=== PATIENT | female | born 1955 | race Caucasian/White ===

== ENCOUNTER 2021-03-13 06:03 | Emergency (ER) | payer MEDICARE, BC, SELFPAY ==
--- NOTE | 2021-03-13 06:14 | XRR_ITS ---
PROCEDURE INFORMATION: Exam: XR Chest Exam date and time: 03/13/2021 6:14 AM Age: 65 years old Clinical indication: Cough and other: Covid+; Patient HX: Cough; Dyspnea; Covid +; Additional info: Dyspnea/cough TECHNIQUE: Imaging protocol: XR of the chest. Views: 1 view. COMPARISON: No relevant prior studies available. FINDINGS: Lungs: Unremarkable. No consolidation. Pleural spaces: Unremarkable. No pleural effusion. No pneumothorax. Heart/Mediastinum: Unremarkable. No cardiomegaly. Bones/joints: Unremarkable. XR/XR chest 1V portable [id number] IMPRESSION: No significant abnormality.
[2021-03-13 06:22] VITALS: BP 131/83; PULSE 56; RESP 18; TEMP 37.4; O2SAT 98; BMI 34.1
--- NOTE | 2021-03-13 08:28 | ED_ITS ---
HPI - COVID General: Chief Complaint: COVID symptoms Stated Complaint: covid+ heavy chest Time Seen by Provider: 03/13/21 06:12 Triage information: Has fever, cough or shortness of breath . History of Present Illness: MD complaint: has COVID symptoms Prior covid testing: yes, results known (Home testing kit from [facility] was positive.) Prior testing date: 03/10/21 COVID 19 common symptoms: positive fever(s), chills, cough, non-productive cough, dyspnea, fatigue, body aches, throat pain, nasal congestion, nausea and diarrhea COVID 19 other sytmptoms: positive chest pain; negative requiring oxygen Onset (ago): day(s) (5) Severity: mild Treatment prior to arrival: none COVID Results: SARS-CoV-2 Antigen (Rapid) Positive (Negative) H 03/13/21 07:21 03/13/21 Nasal/Oral Coronavirus 2019 PCR Pending 03/13/21 07:21 03/13/21 Review of Systems Const: Reports: fever(s), chills, body aches and fatigue ENMT: Reports: throat pain and nasal congestion Card: Reports: chest pain Resp: Reports: dyspnea and non-productive cough GI: Reports: nausea and diarrhea : Denies: flank pain, difficulty voiding, dysuria, urinary frequency or urinary urgency Skin/Breast: Denies: rash or pruritus Physical Exam Const: COMMON NORMALS: no acute distress GENERAL APPEARANCE: cooperative and comfortable ORIENTATION/CONSCIOUSNESS: Yes awake, Yes oriented to person, Yes oriented to place and Yes oriented to time HENMT: COMMON NORMALS: normocephalic, atraumatic and hearing grossly normal bilaterally HEAD & SCALP: normocephalic and atraumatic Neck/C-Spine: COMMON NORMALS: no JVD Resp: COMMON NORMALS: normal respiratory effort, No retractions, No use of accessory muscles and clear to auscultation bilaterally AUSCULTATION: clear to auscultation bilaterally Cardio: COMMON NORMALS: no JVD, regular rate, regular rhythm and No murmurs present (Cardio) RATE: regular rate RHYTHM: regular rhythm GI: COMMON NORMALS: Soft to palpation and No hepatosplenomegaly present AUSCULTATION: Yes normoactive bowel sounds PALPATION: Yes Soft to palpation, No Tenderness to palpation present (GI), No Guarding due to palpation present (GI) and Yes No hepatosplenomegaly present Extremity: COMMON NORMALS: normal to inspection, capillary refill normal, no clubbing, cyanosis or edema, no calf tenderness and no pedal edema Neuro: SENSORIUM/ORIENTATION: Yes oriented to person, Yes oriented to place and Yes oriented to time Skin: COMMON NORMALS: no rashes or lesions noted GENERAL SKIN EXAM: no rashes or lesions noted Course Vital Signs: Vital signs: Vital Signs Temperature 99.3 F 03/13/21 06:22 Pulse Rate 56 L 03/13/21 06:22 Respiratory Rate 15 03/13/21 08:45 Blood Pressure 131/83 03/13/21 06:22 Pulse Oximetry 98 03/13/21 08:45 MDM - COVID MDM Narrative: Medical decision making narrative: Covid testing repeated in the emergency room and confirmed to be positive. We will set the patient up for monoclonal antibodies as an outpatient. She fits both the time criteria her symptoms started approximately 5 days ago as well as based on her age she will qualify. She reviewed risks benefits alternatives. Patient expressed understanding and wishes to proceed with monoclonal antibody infusion. Lab Data: Labs: Lab Results 03/13/21 Range/Units 07:21 SARS-CoV-2 Ag (Rap id) Positive H (Negative) COVID Results: SARS-CoV-2 Antigen (Rapid) Positive (Negative) H 03/13/21 07:21 03/13/21 Nasal/Oral Coronavirus 2019 PCR Pending 03/13/21 07:21 03/13/21 Monoclonal Antibody Treatments Inclusion/Exclusion Criteria weight >/= 40 kg and + direct Sars-Cov-2 test less than 7-10 days ago age >/= 65 not requiring hospitalization, not requiring oxygen (if not chronically on oxygen) and no increase oxygen requirement (if chronically on oxygen) Patient education patient/family/caregiver received/reviewed fact sheet, Emergency Use Authorization/unapproved drug status discussed with patient/family/caregiver, alternatives to this treatment discussed with patient/family/caregiver, risks a nd benefits of medication reviewed with patient/family/caregiver, patient/family/caregiver given opportunity for questions, which were answered and patient consents to receiving Monoclonal Antibody Treatment Plan for treatment Meets criteria for Monoclonal Antibody infusion Ordering Monoclonal Antibody infusion for another day Discharge Plan Discharge Patient Disposition: Home Clinical Impression: COVID-19 Condition: Stable Discharge Orders: Discharge ED (Routine); Ordered 03/13/21 Ordered By: Jase Cintron Discharge Diet: Usual diet Discharge Activity: Limit activity as instructed Patient Instructions: Opioid Safety Activity Restrictions/Additional Instructions: Scheduling will call to schedule a you to get monoclonal antibody infusion. Coding Level of Care Code ED Lens Shaper Grinder for Mannie Jiménez Monoclonal Antibody Treatments Inclusion/Exclusion Criteria OZ COVID test results: SARS-CoV-2 Antigen (Rapid) Positive (Negative) H 03/13/21 07:21 03/13/21 Nasal/Oral Coronavirus 2019 PCR Pending 03/13/21 07:21 03/13/21 weight >/= 40 kg and + direct Sars-Cov-2 test less than 7-10 days ago age >/= 65 not requiring hospitalization, not requiring oxygen (if not chronically on oxygen) and no increase oxygen requirement (if chronically on oxygen) Patient education patient/family/caregiver received/reviewed fact sheet, Emergency Use Authorization/unapproved drug status discussed with patient/family/caregiver, alternatives to this treatment discussed with patient/family/caregiver, risks and benefits of medication reviewed with patient/family/caregiver, patient/family/caregiver given opportunity for questions, which were answered and patient consents to receiving Monoclonal Antibody Treatment Plan for treatment Meets criteria for Monoclonal Antibody infusion Ordering Monoclonal Antibody infusion for another day
[2021-03-13 08:45] VITALS: RESP 15; O2SAT 98
[2021-03-13 08:46] LABS: SARS Covid-2 Antigen Positive (Negative)
[2021-03-13 09:01] VITALS: RESP 15; O2SAT 98
[2021-03-13 13:58] LABS: Coronavirus Test Green County Detected
== END 2021-03-13 09:02 | disposition home or self-care (01) ==
PROVIDERS: Emergency Provider Family Medicine
DX: U07.1 COVID-19 (principal)
CPT/HCPCS: 71045; 87426; 87635; 99282

== ENCOUNTER 2021-03-14 05:55 | Outpatient (CLI) | payer MEDICARE, SELFPAY ==
--- NOTE | 2021-03-14 06:32 | AMB.MCA ---
Patient Information Symptom onset date: 03/08/21 COVID 19 common symptoms: positive fever(s), chills, cough, non-productive cough, fatigue, body aches, headache(s), loss of sense of smell and/or taste, nasal congestion and nausea COVID 19 other sytmptoms: negative requiring oxygen Severity: mild Treatment prior to arrival: none [facility] COVID test results: SARS-CoV-2 Antigen (Rapid) Positive (Negative) H 03/13/21 07:03/13/21 Nasal/Oral Coronavirus 2019 PCR Detected H 03/13/21 07:03/13/21 Criteria/Plan Inclusion/Exclusion Criteria weight >/= 40kg age >/= 65 not requiring hospitalization, not requiring oxygen (if not chronically on oxygen) and no increase oxygen requirement (if chronically on oxygen) Patient education patient/family/caregiver received/reviewed fact sheet, Emergency Use Authorization/unapproved drug status discussed with patient/family/caregiver, alternatives to this treatment discussed with patient/family/caregiver, risks and benefits of medication reviewed with patient/family/caregiver, patient/family/caregiver given opportunity for questions, which were answered and patient consents to receiving Monoclonal Antibody Treatment Plan for treatment Meets criteria for Monoclonal Antibody infusion Ordering Monoclonal Antibody infusion for today
[2021-03-14 06:38] VITALS: BP 108/70; PULSE 73; RESP 16; TEMP 37.1; O2SAT 95; BMI 34.1
[2021-03-14 09:15] VITALS: BP 135/78; PULSE 51; TEMP 36.9; O2SAT 98
--- NOTE | 2021-03-17 14:40 | DCPLANNER ---
manager financial planning had message that patient received the monoclonal antibody infusion. manager financial planning called and spoke with patients . manager financial planning was told that patient is feeling much better, that before the infusion, she ran a fever and had stomach issues. After the infusion, patient is feeling much better just still a little shaky, and can still get a little short of breath.
== END 2021-03-14 05:56 | disposition home or self-care (01) ==
LOC: ER 05:58
PROVIDERS: Visit Provider Family Medicine
DX: U07.1 COVID-19 (principal)
CPT/HCPCS: 96365

== ENCOUNTER 2022-04-30 16:29 | Emergency (ER) | payer MEDICARE, BC, SELFPAY ==
[2022-04-30 16:42] VITALS: BP 147/85; PULSE 82; RESP 16; TEMP 36.4; O2SAT 100; BMI 34.9
--- NOTE | 2022-04-30 18:47 | XRR_ITS ---
PROCEDURE INFORMATION: Exam: XR Left Hip Exam date and time: 04/30/2022 6:59 PM Age: 66 years old Clinical indication: Injury or trauma; Blunt trauma (contusions or hematomas); Left; Hip; Injury details: Fall while unloading a rabbit hutch TECHNIQUE: Imaging protocol: Radiologic exam of the Left hip. Views: 2 or 3 views hip with pelvis when performed. COMPARISON: No relevant prior studies available. FINDINGS: Bones/joints: No fracture or dislocation. Small metallic anchor in the area of each pubic body. Soft tissues: No obvious soft tissue hematoma. XR/XR hip LT 2-3V wo/w pel* [id number] IMPRESSION: No acute fracture.
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
--- NOTE | 2022-04-30 18:47 | CTR_ITS ---
PROCEDURE INFORMATION: Exam: CT Lumbar Spine Without Contrast Exam date and time: 04/30/2022 7:07 PM Age: 66 years old Clinical indication: Injury or trauma; Fall; Blunt trauma (contusions or hematomas) TECHNIQUE: Imaging protocol: Computed tomography of the lumbar spine without contrast. Radiation optimization: All CT scans at this facility use at least one of these dose optimization techniques: automated exposure control; mA and/or kV adjustment per patient size (includes targeted exams where dose is matched to clinical indication); or iterative reconstruction. COMPARISON: CR (PELVIS, ) 04/30/2022 6:59 PM RADIATION DOSE METRICS: Total DLP (mGy-cm): 886.35 FINDINGS: Bones/joints: Short lowest ribs and 4 lumbar vertebral bodies. No pars defect or acute fracture. No definite malalignment. Small right central focal disc protrusion at T11-12. Foraminal annular bulging at L1-L2. Slight disc narrowing, diffuse annular bulging, moderate canal stenosis and mild bilateral foraminal stenoses at L2-L3. Moderate to marked disc narrowing with vacuum phenomenon, diffuse annular bulging, mild canal stenosis and mild left and [id number] right foraminal stenoses at L3-L4. Moderate to marked disc narrowing with vacuum phenomenon, diffuse annular bulging, mild canal stenosis and moderate bilateral foraminal stenoses at L4-S1. Kidneys and ureters: Left nephrectomy. Mild dilatation of the visualized part of the right ureter, but no right hydronephrosis. Vasculature: No aortic aneurysm. Atherosclerosis. Soft tissues: No apparent soft tissue hematoma. CT/CT lumbar spine wo con* [id number] IMPRESSION: 1. No acute fracture. 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 2. Left nephrectomy. Mild right hydroureter, cause and significance unclear.
[2022-04-30] MEDS: HYDROcodone-acetaminophen 5-325 mg Tablet 1 TAB PO (19:48)
[2022-04-30] MEDS: tetanus-diphtheria tox (adult) 0.5 mL SDV IM (19:48)
[2022-04-30] MEDS: cephALEXin 500 mg Capsule PO (20:41)
[2022-04-30 20:42] VITALS: BP 174/99; PULSE 82; RESP 16; TEMP 36.4; O2SAT 100
--- NOTE | 2022-05-01 22:16 | W.ED.WOUNDLC ---
HPI - Wound/Laceration General: Chief Complaint: Wound/Laceration Stated Complaint: Laceration head and arm Time Seen by Provider: 04/30/22 18:42 History of Present Illness: 66-year-old female patient presents to the emergency department with a laceration to her forehead and bilateral upper extremities. Patient states she was working on a rabbit cage and a piece of metal fell off and hit her. Unknown loss of consciousness. Patient is not on any blood thinners. Patient denies any neck pain. Patient denies any other trauma or injury. Patient presents with bleeding controlled Associated symptoms: Denies chills, fever(s), nausea, syncope or vomiting Review of Systems Const: Denies: fever(s), chills, body aches, change in appetite, change in weight, fatigue, malaise or diaphoresis Eyes: Denies: change in vision, blurry vision, blind spots, photophobia, eye discomfort, eye discharge, eye redness, floaters or seeing flashes ENMT: Denies: throat pain, uvular edema, enlarged tonsils, odynophagia, hoarseness, mouth pain, swelling of lips/tongue, oral sores, bleeding gums, dental pain, dry mouth, ear or mastoid pain, ear discharge, change in hearing, tinnitus, disequilibrium, nasal discharge, nasal congestion, post nasal drip or sinus pain Card: Denies: chest pain, palpitations, irregular heart rhythm, edema, swelling of feet/ankles, lightheadedness, syncope, pre-syncope, dyspnea on exertion, orthopnea, leg pain with exertion or acrocyanosis Resp: Denies: dyspnea, productive cough, non-productive cough, wheezing, stridor, pain on inspiration, change in phlegm color, hemoptysis or chest congestion GI: Denies: abdominal pain, nausea, vomiting, hematemesis, dysphagia, diarrhea, constipation, GI cramping, change in bowel habits or rectal pain : Denies: flank pain, difficulty voiding, dysuria, urinary frequency, urinary urgency, urinary hesitancy or hematuria Musc: Reports: extremity pain; Denies: neck pain, back pain, extremity swelling, joint pain, joint swelling, joint redness, joint warmth or deformity Skin/Breast: Denies: rash, pruritus, erythema, sores, new lesions, changes in skin color or dry skin Neuro: Reports: headache(s) and dizziness; Denies: numbness in extremities, weakness in extremities, sensory changes, lack of coordination, difficulty walking, frequent falls, vertigo, confusion, behavioral changes, Slurred speech present, difficulty communicating thoughts or seizure-like activity Psych: Denies: anxiety, depression, suicidal ideation or homicidal ideation Endo: Denies: polyuria, polydipsia, tired all the time, cold intolerance, excessive sweating, flushing, hot flashes or heat intolerance Maximo/Lymph: Denies: easy bruising, easy bleeding, petechiae, purpura, enlarged lymph nodes or tender lymph nodes All/Imm: Denies: urticaria, throat swelling, tongue swelling, facial swelling, acute wheezing or itchy eyes Physical Exam Const: COMMON NORMALS: no acute distress, patient oriented x3, healthy appearing, alert and well nourished GENERAL APPEARANCE: cooperative, comfortable, well kempt and well developed; not ill appearing ORIENTATION/CONSCIOUSNESS: Yes awake, Yes oriented to person, Yes oriented to place and Yes oriented to time HENMT: COMMON NORMALS: normocephalic, hearing grossly normal bilaterally, external ears normal, EAC's normal, TM's normal bilaterally, Normal external nose present, Normal nasal mucous membranes and turbinates present and moist oral mucous membranes HEAD & SCALP: normal to inspection and normocephalic FACE & SINUS: normal facial exam, sinuses nontender and face symmetric NOSE: Normal external nose present, Normal nares present, Normal nasal mucous membranes and turbinates present, No nasal discharge present and Abnormal external nose present EXTERNAL EAR: Yes external ears normal and Yes mastoids normal EXTERNAL AUDITORY CANAL: EAC's normal TYMPANIC MEMBRANE: TM's normal bilaterally MOUTH: Normal oral and palatal mucosa present, lip normal, tongue normal and Normal salivary glands and ducts present THROAT: no uvular edema Eye: COMMON NORMALS: Equal, round and reactive pupils present, EOMs intact bilaterally, conjunctivae normal and no scleral icterus GENERAL EYE: appearance normal, both eyes and all related structures EYELID: eyelids normal CONJUNCTIVA: Yes conjunctivae normal SCLERA: sclerae normal CORNEA: Yes corneas normal PUPIL: Yes Equal, round and reactive pupils present Neck/C-Spine: COMMON NORMALS: full ROM, no lymphadenopathy, supple, no meningeal signs, no JVD and Thyroid normal GENERAL: Yes normal visual inspection and Yes trachea midline THYROID: Thyroid normal CERVICAL SPINE: Yes cervical ROM normal Lymph: LYMPHATIC: no lymphadenopathy noted and no lymphedema noted Chest: COMMONS NORMALS: normal inspection of the chest and normal palpation of entire chest wall Resp: COMMON NORMALS: normal respiratory effort, No retractions, No use of accessory muscles and clear to auscultation bilaterally EFFORT & INSPECTION: Yes able to speak in complete sentences and Yes symmetric chest movement AUSCULTATION: clear to auscultation bilaterally Cardio: COMMON NORMALS: no JVD, regular rate and regular rhythm RATE: regular rate RHYTHM: regular rhythm GI: COMMON NORMALS: Normal to inspection, nondistended, normoactive bowel sounds present, Soft to palpation, non-tender, No hepatosplenomegaly present, no masses and no bruits INSPECTION: Yes normal to inspection AUSCULTATION: Yes normoactive bowel sounds PALPATION: Yes Soft to palpation and Yes No hepatosplenomegaly present PERCUSSION: normal to percussion RECTAL EXAM: deferred : COMMON NORMALS: Yes no CVA tenderness, Yes normal external appearance, Yes normal appearance of the vagina, Yes normal appearance of the cervix, Yes No adnexal tenderness and Yes no masses BLADDER/KIDNEY EXAM: Yes no CVA tenderness Back/Pelvis: COMMON NORMALS: no CVA tenderness, thoracic and lumbar spine normal to inspection, no thoracic nor lumbar tenderness, thoraco-lumbar ROM normal and straight leg raise negative bilaterally THORACIC SPINE/UPPER BACK: Yes normal to inspection LUMBAR SPINE/LOWER BACK: Yes normal to inspection Extremity: COMMON NORMALS: normal to inspection, full ROM and capillary refill normal GENERAL: Yes normal exam except as noted Neuro: COMMON NORMALS: patient oriented x3, CN's II-XII intact bilaterally, moves all extremities, no focal motor deficits, no sensory deficits noted and gait normal SENSORIUM/ORIENTATION: Yes alert, Yes oriented to person, Yes oriented to place and Yes oriented to time MENINGEAL SIGNS: Yes no meningeal signs CRANIAL NERVES: Yes CN normal except as noted SPEECH: speech normal GAIT: Yes Normal gait present SENSORY EXAM: Yes extremities MOTOR EXAM: 5/5 motor strength present throughout Psych: COMMON NORMALS: mental status grossly normal, Normal thought process present, cooperative, normal affect, speech normal, activity/motor behavior normal, denies hallucinations, denies homicidal ideation and denies suicidal ideation APPEARANCE: Yes grossly normal and Yes well kempt ATTITUDE: Yes calm ACTIVITY/MOTOR BEHAVIOR: Yes appropriate eye contact SPEECH: Yes normal speech THOUGHT PROCESS: Normal thought process present THOUGHT CONTENT: Yes Normal thought content present ATTENTION/CONCENTRATION: Yes attention grossly intact MEMORY/COGNITION: Yes memory grossly intact INSIGHT: Good insight present (Psych) JUDGEMENT: Good judgement present (Psych) Skin: COMMON NORMALS: no rashes or lesions noted, no wounds, turgor normal, no jaundice, no petechiae and no mottling GENERAL SKIN EXAM: no rashes or lesions noted and turgor normal Procedures Laceration Laceration 1: Site: face Side (If applicable): left Size (cm): 4 Description: linear Depth: simple, single layer Local Anesthetic: lidocaine 1% Amount of anesthesia used (mL): 5 Pre-repair: wound explored and irrigated extensively Skin layer closed with: nylon Size (cm): 5-0 Number of sutures: 11 Course Vital Signs: Vital signs: Vital Signs Temperature 97.5 F L 04/30/22 20:42 Pulse Rate 82 04/30/22 20:42 Respiratory Rate 16 04/30/22 20:42 Blood Pressure 174/99 04/30/22 20:42 Pulse Oximetry 100 04/30/22 20:42 Oxygen Delivery Me thod 04/30/22 16:42 MDM - Wound/Laceration Medical Decision Making Patient is well-appearing nontoxic in no acute distress.66-year-old female patient presents to the emergency department with a laceration to her forehead and bilateral upper extremities. Patient states she was working on a rabbit cage and a piece of metal fell off and hit her. Unknown loss of consciousness. Patient is not on any blood thinners. Patient denies any neck pain. Patient denies any other trauma or injury. Patient presents with bleeding controlled patient CT head neck are negative for any acute findings. Patient does not have any neurofocal deficits noted. Please see procedure note for laceration repair. Steri-Strips were applied to bilateral upper extremities after they were cleansed and irrigated. Lab Data Radiology Impressions Cervical Spine CT 04/30/22 18:[address]: [address] evidence of acute cervical spine traumatic injury. 2. Additional findings, as above. Head CT 04/30/22 18:[address]: [address] evidence of acute intracranial pathology. 2. Additional findings, as above. Hip/Pelvis X-Ray 04/30/22 18:47 IMPRESSION: No acute fracture. Lumbar Spine CT 04/30/22 18:47 IMPRESSION: 1. No acute fracture. 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 2. Left nephrectomy. Mild right hydroureter, cause and significance unclear. Discharge Plan Discharge Patient Disposition: Home Clinical Impression: Complex laceration of scalp Condition: Stable Prescriptions: New cephalexin 500 mg capsule 500 mg PO Q8H 7 Days Qty: 21 0RF Discharge Orders: Discharge ED (Routine); Ordered 04/30/22 Ordered By: Natasha Walker Discharge Diet: Advance as tolerated Discharge Activity: Increase activity as tolerated Patient Instructions: Laceration (DC), Opioid Safety Activity Restrictions/Additional Instructions: Please follow wound care instructions Return to ER in 5-6 days for sure removal Return to ER with any worsening of symptoms or concerns Coding Level of Care Code 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
--- NOTE | 2022-05-05 11:28 | PC.NURSE ---
Pt returned for suture removal. This RN removed sutures from L-forehead, pt charged for 1 suture removal kit.
== END 2022-04-30 20:44 | disposition home or self-care (01) ==
PROVIDERS: Emergency Provider Registered Nurse
DX: S01.81XA Laceration without foreign body of other part of head, initial encounter (principal); W20.8XXA Other cause of strike by thrown, projected or falling object, initial encounter; Z23 Encounter for immunization
CPT/HCPCS: 12013; 70450; 72125; 72131; 73502; 90471; 90714; 99285

== ENCOUNTER 2022-09-02 02:40 | Emergency (ER) | payer MEDICARE, BC, SELFPAY ==
[2022-09-02 03:00] VITALS: BP 155/96; PULSE 79; RESP 16; TEMP 36.9; O2SAT 98; BMI 35.2
[2022-09-02 03:24] LABS: Blood Urine 3+ (Negative); Glucose Urine UA Norm (Normal); Ketones Urine Negative (Negative); Protein Urine 3+ (Negative); Urine Appearance Cloudy (CLEAR); Urine Color Red (Yellow); pH Urine 7 (5-7)
[2022-09-02 03:25] LABS: Add Urine Microscopic? YES; Bilirubin Urine 1+ (Negative); Leukocyte Esterase Urine 1+ (Negative); Nitrate Urine Positive (Negative); Urobilinogen Urine 1 mg/dL (Negative)
[2022-09-02 03:27] LABS: RBC Urine >100 /hpf (0-2); Squamous Epithelial Cell Urine 0-4 /hpf (0-5); WBC Urine 15-25 /hpf (0-5)
[2022-09-02 03:33] LABS: Oval Fat Bodies Urine 2+ /hpf
[2022-09-02 03:35] LABS: Add Urine Culture? Yes; Bacteria Urine TRACE /hpf; Mucus Urine TRACE /hpf
--- NOTE | 2022-09-02 03:43 | CTR_ITS ---
PROCEDURE INFORMATION: Exam: CT Abdomen And Pelvis Without Contrast Exam date and time: 09/02/2022 3:53 AM Age: 66 years old Clinical indication: Other: Mass hematuria; Abdominal pain; Prior surgery; Surgery date: 6+ months; Surgery type: Kidney donor; Patient HX: Passing large blood clots per patient, pelvic pain; Additional info: Abd pain hematuria TECHNIQUE: Imaging protocol: Computed tomography of the abdomen and pelvis without contrast. Radiation optimization: All CT scans at this facility use at least one of these dose optimization techniques: automated exposure control; mA and/or kV adjustment per patient size (includes targeted exams where dose is matched to clinical indication); or iterative reconstruction. COMPARISON: No relevant prior studies available. RADIATION DOSE METRICS: Total DLP (mGy-cm): 955.64 FINDINGS: Lungs: The lung bases are clear. Diaphragm: Small hiatal hernia. Liver: Unremarkable. Gallbladder and bile ducts: No definite gallbladder abnormality by CT. No biliary tree dilation. Pancreas: Unremarkable. Spleen: Unremarkable. Adrenal glands: Unremarkable. Kidneys and ureters: Prior left nephrectomy. No significant right hydronephrosis. No visible renal or ureteral calculus. No perinephric fluid. Normal appearance of the kidneys on noncontrast CT does not entirely exclude the diagnosis of acute pyelonephritis. Please correlate with clinical and laboratory evaluation. Stomach and bowel: No significant bowel distention. There is diverticulosis involving the sigmoid colon, without CT evidence of diverticulitis. Appendix: The appendix is visualized and appears normal. Intraperitoneal space: No free intraperitoneal air, or ascites. Vasculature: No evidence for abdominal aortic aneurysm. Lymph nodes: No retroperitoneal adenopathy. Urinary bladder: No visible calculus in the urinary bladder. Suspect mild to moderate diffuse urinary bladder wall thickening, with some indistinctness of the bladder wall. Evaluation is somewhat limited, as the bladder is not well distended. While nonspecific, this could indicate evidence for cystitis. Please correlate clinically. Reproductive: Apparent prior hysterectomy. No definite ovarian/adnexal cyst or mass by CT. Bones/joints: Prominent degenerative disc changes in the lower lumbar spine. Soft tissues: No significant acute finding. CT/CT kidney stone [id number] IMPRESSION: 1. Suspected urinary bladder wall thickening, possibly related to cystitis. 2. No significant right hydronephrosis. No visible renal or ureteral calculus. No perinephric fluid. See above discussion. 3. Prior left nephrectomy. 4. Normal appendix. 5. No free air or bowel distention. 6. Other findings discussed above.
[2022-09-02 04:03] LABS: Basophils # 0.1 10^3/uL (0.0-0.1); Basophils % 0.5 %; Eosinophils # 0.2 10^3/uL (0.0-0.8); Eosinophils % 1.6 %; Hematocrit 45.2 % (37.0-47.0); Hemoglobin 15.4 g/dL (11.5-15.3); Lymphocytes # 1.3 10^3/uL (0.8-4.8); Lymphocytes % 11.5 %; Mean Corpuscular HGB Conc 34.1 g/dL (30.0-36.0); Mean Corpuscular Hemoglobin 33.5 pg (28.0-34.0); Mean Corpuscular Volume 98.3 fl (81-99); Mean Platelet Volume 11.9 fL (7.4-10.4); Monocytes # 0.7 10^3/uL (0.2-0.9); Monocytes % 6.3 %; Neutrophils # 9.33 10^3/uL (1.8-7.7); Neutrophils % 79.8 %; Nucleated Red Blood Cells % 0 %; Platelet Count 238 10^3/cmm (130-400); Red Cell Distribution Width 12.8 % (12.1-15.1); White Blood Count 11.7 10^3/uL (4.0-10.0)
[2022-09-02] MEDS: cefTRIAXone 1,000 MG in sodium chloride 0.9% (plus) 50 ML 100 MG IV (04:08)
[2022-09-02 04:25] LABS: Alanine Aminotransferase 14 U/L (0-33); Albumin Level 4.2 g/dL (3.5-5.2); Alkaline Phosphatase 88 U/L (35-105); Anion Gap 14.9 (5-19); Aspartate Amino Transferase 15 U/L (0-32); Blood Urea Nitrogen 14 mg/dL (8-23); Calcium 9.8 mg/dL (8.5-10.5); Carbon Dioxide 22 mmol/L (22-29); Chloride 105 mmol/L (98-107); Globulin 2.6 g/dL (1.3-4.6); Glomerular Filtration Rate 62.6 mL/min (90-130); Glucose 129 mg/dL (65-115); Lipase 51 U/L (13-60); Osmolality Calculated 288 mOsm/kg (285-295); Potassium 3.9 mmol/L (3.5-5.1); Sodium 138 mmol/L (136-145); Total Bilirubin 0.5 mg/dL (0.15-1.2); Total Protein 6.8 g/dL (6.6-8.7)
[2022-09-02] MEDS: ondansetron 2 mg/ML SDV 2 mL 4 MG IVP (04:59)
[2022-09-02] MEDS: morphine 4 mg/mL SDV 1 mL IVP (05:00)
[2022-09-02 05:03] VITALS: BP 166/80; PULSE 69; RESP 17; O2SAT 98
[2022-09-02 05:57] VITALS: BP 144/62; PULSE 55; RESP 16; O2SAT 97
--- NOTE | 2022-09-02 16:05 | W.ED.ABDPA2 ---
HPI - Abdominal Pain General: Chief Complaint: Abdominal Pain Stated Complaint: lower abdomen pain Time Seen by Provider: 09/02/22 04:23 Source: patient History of Present Illness: 66 year old female presenting with lower abdominal pain. She says that she had some trouble urinating at home, with increased belly pain. There was blood in her urine that was significant, with passage of some clots. This continues. No fever. She has been nauseated, but she has not vomited. No diarrhea. She has a history of a nephrectomy, as a kidney donor. She also has a history of a ?bladder tuck surgery? as well as a urethral reconstruction for incontinence. MD elicited complaint: abdominal pain Pertinent past history: other Onset (ago): hour(s) Pain Consistency: constant Location: Suprapubic Severity: moderate Quality: stabbing and aching Radiation: none Migration to: no migration Exacerbating factors: other (urination) Relieving factors: nothing Associated Symptoms: Reports nausea; Denies chills, constipation, diarrhea, fever(s), hematochezia, loose stools, melena and vomiting Review of Systems Const: Denies: fever(s) or chills Eyes: Denies: change in vision Card: Denies: chest pain or palpitations Resp: Denies: dyspnea, productive cough, non-productive cough or wheezing GI: Reports: nausea; Denies: vomiting, diarrhea, constipation, hematochezia or melena : Denies: difficulty voiding Skin/Breast: Denies: rash Neuro: Denies: headache(s), weakness in extremities, dizziness or confusion Physical Exam Const: COMMON NORMALS: no acute distress GENERAL APPEARANCE: cooperative; not ill appearing and not frail appearing HENMT: COMMON NORMALS: normocephalic, atraumatic and Normal external nose present HEAD & SCALP: normocephalic and atraumatic FACE & SINUS: normal facial exam and face symmetric NOSE: Normal external nose present Eye: COMMON NORMALS: Equal, round and reactive pupils present and EOMs intact bilaterally PUPIL: Yes Equal, round and reactive pupils present Neck/C-Spine: GENERAL: Yes trachea midline Chest: CHEST: Yes Symmetrical chest wall rise Resp: COMMON NORMALS: normal respiratory effort, No retractions, No use of accessory muscles and clear to auscultation bilaterally AUSCULTATION: clear to auscultation bilaterally Cardio: COMMON NORMALS: regular rate and regular rhythm RATE: regular rate RHYTHM: regular rhythm GI: COMMON NORMALS: Normal to inspection, nondistended, normoactive bowel sounds present and Soft to palpation PALPATION: Yes Soft to palpation and Yes Tenderness to palpation present (GI) (suprapubic) : COMMON NORMALS: Yes no CVA tenderness BLADDER/KIDNEY EXAM: Yes no CVA tenderness Back/Pelvis: COMMON NORMALS: no CVA tenderness Extremity: COMMON NORMALS: no pedal edema Neuro: HAMMAD COMA SCALE: document GCS findings [place] coma scale eye opening: Spontaneous [place] coma scale verbal response: Orientated Hammad coma scale motor response: Obey commands [place] coma scale total score: 15 SENSORY EXAM: Yes extremities (intact) Psych: COMMON NORMALS: speech normal SPEECH: Yes normal speech Skin: COMMON NORMALS: no rashes or lesions noted GENERAL SKIN EXAM: no rashes or lesions noted Course Vital Signs: Vital signs: Vital Signs Temperature 98.4 F 09/02/22 03:00 Pulse Rate 55 L 09/02/22 05:57 Respiratory Rate 16 09/02/22 05:57 Blood Pressure 144/62 09/02/22 05:57 Pulse Oximetry 97 09/02/22 05:57 Oxygen Delivery Me thod 09/02/22 05:57 MDM - Abdominal Pain Medical Decision Making Vital signs are stable. She has a mild Leukocytosis of 11.7. UA is remarkable for>100RBC as well as increased WBCS. It is nitrate positive, and leukocyte esterase positive. CT shows evidence of cystitis without significant hydronephrosis or calculus. Appendix is normal. No other significant findings. She is not vomiting. She's had a gram of rocephin here. Without the presence of visible tumor on CT, most likely causevis hemorrhagic urinary tract infection which will be treated accordingly. She has been able to urinate in the ER unassisted, and her pain is improving. She knows to return for any worsening symptoms. Lab Data 09/02/22 03:46 09/02/22 03:46 Labs/Radiology: Radiology Impressions Abdomen/Pelvis CT 09/02/22 03:43 IMPRESSION: 1. Suspected urinary bladder wall thickening, possibly related to cystitis. 2. No significant right hydronephrosis. No visible renal or ureteral calculus. No perinephric fluid. See above discussion. 3. Prior left nephrectomy. 4. Normal appendix. 5. No free air or bowel distention. 6. Other findings discussed above. Laboratory Results WBC 11.7 10^3/uL (4.0-10.0) H 09/02/22 03:46 RBC 4.60 10^6/uL (4.1-5.3) 09/02/22 03:46 Hgb 15.4 g/dL (11.5-15.3) H 09/02/22 03:46 Hct 45.2 % (37.0-47.0) 09/02/22 03:46 MCV 98.3 fl (81-99) 09/02/22 03:46 MCH 33.5 pg (28.0-34.0) 09/02/22 03:46 MCHC 34.1 g/dL (30.0-36.0) 09/02/22 03:46 RDW 12.8 % (12.1-15.1) 09/02/22 03:46 Plt Count 238 10^3/cmm (130-400) 09/02/22 03:46 MPV 11.9 fL (7.4-10.4) H 09/02/22 03:46 Neut % (Auto) 79.8 % 09/02/22 03:46 Lymph % (Auto) 11.5 % 09/02/22 03:46 [place] % (Auto) 6.3 % 09/02/22 03:46 Eos % (Auto) 1.6 % 09/02/22 03:46 Baso % (Auto) 0.5 % 09/02/22 03:46 Neut # (Auto) 9.33 10^3/uL (1.8-7.7) H 09/02/22 03:46 Lymph # (Auto) 1.3 10^3/uL (0.8-4.8) 09/02/22 03:46 [place] # (Auto) 0.7 10^3/uL (0.2-0.9) 09/02/22 03:46 Eos # (Auto) 0.2 10^3/uL (0.0-0.8) 09/02/22 03:46 Baso # (Auto) 0.1 10^3/uL (0.0-0.1) 09/02/22 03:46 Nucleated RBC % (auto) 0 % 09/02/22 03:46 Nucleated RBCs # 0.0 /100WBC 09/02/22 03:46 Sodium 138 mmol/L (136-145) 09/02/22 03:46 Potassium 3.9 mmol/L (3.5-5.1) 09/02/22 03:46 Chloride 105 mmol/L (98-107) 09/02/22 03:46 Carbon Dioxide 22 mmol/L (22-29) 09/02/22 03:46 Anion Gap 14.9 (5-19) 09/02/22 03:46 BUN 14 mg/dL (8-23) 09/02/22 03:46 Creatinine 0.9 mg/dL (0.5-0.9) 09/02/22 03:46 GFR Calculation 62.6 mL/min (90-130) L 09/02/22 03:46 Glucose 129 mg/dL (65-115) H 09/02/22 03:46 Calculated Osmolality 288 mOsm/kg (285-295) 09/02/22 03:46 Calcium 9.8 mg/dL (8.5-10.5) 09/02/22 03:46 Total Bilirubin 0.5 mg/dL (0.15-1.2) 09/02/22 03:46 AST 15 U/L (0-32) 09/02/22 03:46 ALT 14 U/L (0-33) 09/02/22 03:46 Alkaline Phosphatase 88 U/L (35-105) 09/02/22 03:46 Total Protein 6.8 g/dL (6.6-8.7) 09/02/22 03:46 Albumin 4.2 g/dL (3.5-5.2) 09/02/22 03:46 Globulin 2.6 g/dL (1.3-4.6) 09/02/22 03:46 Lipase 51 U/L (13-60) 09/02/22 03:46 Urine Color Red (Yellow) 09/02/22 03:00 Urine Appearance Cloudy (CLEAR) A 09/02/22 03:00 Urine pH 7 (5-7) 09/02/22 03:00 Ur Specific [place] 1.010 (1.005-1.030) 09/02/22 03:00 Urine Protein 3+ (Negative) H 09/02/22 03:00 Urine Glucose (UA) Norm (Normal) 09/02/22 03:00 Urine Ketones Negative (Negative) 09/02/22 03:00 Urine Blood 3+ (Negative) H 09/02/22 03:00 Urine Nitrate Positive (Negative) H 09/02/22 03:00 Urine Bilirubin 1+ (Negative) H 09/02/22 03:00 Urine Urobilinogen 1 mg/dL (Negative) H 09/02/22 03:00 Ur Leukocyte Esterase 1+ (Negative) H 09/02/22 03:00 Urine RBC >100 /hpf (0-2) H 09/02/22 03:00 Urine WBC 15-25 /hpf (0-5) H 09/02/22 03:00 Ur Squamous Epith Cells 0-4 /hpf (0-5) H 09/02/22 03:00 Amorphous Sediment Not Reportable 09/02/22 03:00 Urine Bacteria Trace /hpf (NONE) 09/02/22 03:00 Urine Mucus Trace /hpf 09/02/22 03:00 Ur Oval Fat Bodies 2+ /hpf 09/02/22 03:00 Discharge Plan Discharge Patient Disposition: Home Clinical Impression: Urinary tract infection Qualifiers: Urinary tract infection type: acute cystitis Hematuria presence: with hematuria Qualified Code(s): N30.01 - Acute cystitis with hematuria Condition: Stable Prescriptions: New hydrocodone-acetaminophen 5-325 mg tablet 1 tab PO Q8H PRN (Reason: pain) Qty: 7 0RF cefdinir 300 mg capsule 300 mg PO BID Qty: 14 0RF Discharge Orders: Discharge ED (Routine); Ordered 09/02/22 Ordered By: Mor Parsons Referrals: Galdino Chaney [Primary Care Provider] - 1-3 days Discharge Diet: Advance as tolerated Discharge Activity: Increase activity as tolerated Patient Instructions: Urinary Tract Infection in Women (DC), Hematuria (ED), Opioid Safety, Pain Management Activity Restrictions/Additional Instructions: Return for fever greater than 100 despite 2-3 doses of antibiotics, worsening pain despite treatment, altered mental status, inability to urinate, any other concerning symptoms. Follow-up with your doctor early this week. Medications as directed. 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
== END 2022-09-02 05:59 | disposition home or self-care (01) ==
PROVIDERS: Emergency Provider Emergency Medicine; PCP Family Medicine
DX: N30.01 Acute cystitis with hematuria (principal)
CPT/HCPCS: 74176; 80053; 81001; 83690; 85025; 87086; 96365; 96375; 99285; J0696; J2270; J2405

== ENCOUNTER → 2022-11-24 10:10 | Outpatient (BNVA) | payer MEDICARE, BC, SELFPAY | PROVIDERS: PCP Family Medicine; Visit Provider Nurse Practitioner Family | DX: J02.8 Acute pharyngitis due to other specified organisms (principal); B97.89 Other viral agents as the cause of diseases classified elsewhere; R39.9 Unspecified symptoms and signs involving the genitourinary system | CPT/HCPCS: 81000; 87071; 87880 ==

== ENCOUNTER 2023-11-09 10:35 | Emergency (ER) | payer MEDICARE, OTHER, SELFPAY ==
--- NOTE | 2023-11-09 10:37 | XRR_ITS ---
PROCEDURE INFORMATION: Exam: XR Left Wrist Exam date and time: 11/09/2023 11:12 AM Age: 68 years old Clinical indication: Injury or trauma; Fall; Blunt trauma (contusions or hematomas); Wrist; Left TECHNIQUE: Imaging protocol: Radiologic exam of the left wrist. Views: 3 or more views. COMPARISON: CR XR hand LT min 3V* [id number] 11/09/2023 11:09 AM FINDINGS: Bones/joints: Acute displaced extra-articular fracture of the 4th metacarpal shaft. Radiocarpal articulation and carpal rows are grossly intact. The pisiform appears slightly high in position raising the question of pisotriquetral subluxation versus anatomic variant. Soft tissues: Grossly unremarkable. XR/XR wrist LT min 3V* [id number] IMPRESSION: 1. Acute displaced extra-articular fracture of the 4th metacarpal shaft. 2. Pisiform appears slightly high in position raising the question of pisotriquetral subluxation versus anatomic variant.
[2023-11-09 10:51] VITALS: BP 165/101; PULSE 62; RESP 18; TEMP 36.7; O2SAT 100; BMI 33.3
--- NOTE | 2023-11-09 10:54 | XRR_ITS ---
PROCEDURE INFORMATION: Exam: XR Left Hand Exam date and time: 11/09/2023 11:09 AM Age: 68 years old Clinical indication: Injury or trauma; Fall; Blunt trauma (contusions or hematomas); Wrist; Left TECHNIQUE: Imaging protocol: Radiologic exam of the left hand. Views: 3 or more views. COMPARISON: No relevant prior studies available. FINDINGS: Bones/joints: Acute displaced extra-articular fracture of the 4th metacarpal shaft. A nondisplaced fracture line extends proximally into the region of the base. No gross evidence of articular step-off. Subtle lucency is noted along the ulnar aspect of the hamate, possibly projectional. Radiocarpal articulation and carpal rows are otherwise grossly intact. Soft tissues: Mild soft tissue edema. No radiopaque foreign body. XR/XR hand LT min 3V* [id number] IMPRESSION: 1. Acute displaced extra-articular fracture of the 4th metacarpal shaft. 2. Subtle lucency is noted along the ulnar aspect of the hamate, possibly projectional. Correlation with point tenderness and CT may be helpful if clinically warranted.
--- NOTE | 2023-11-09 10:54 | W.ED.FALL ---
HPI - Fall General: Chief Complaint: Extremity Injury, Upper Stated Complaint: fall, left wrist pain Time Seen by Provider: 11/09/23 10:51 Source: patient Mode of arrival: ambulatory Limitations: no limitations History of Present Illness: 68-year-old female states that this morning she had fell down some stairs she states she went to grab the rail with her left hand and states that for like it pulled her wrist and hand she has pain in that wrist and hand. States she also landed on her buttocks but has no hip pain has been ambulatory since the event denies any head injury she rates her pain a 5 out of 10 currently. Associated symptoms-after fall: Denies abdominal pain, chest pain, headache(s) or neck pain Review of Systems Const: Denies: fever(s) or chills ENMT: Denies: throat pain or dental pain Card: Denies: chest pain Resp: Denies: dyspnea GI: Denies: abdominal pain, nausea, vomiting or diarrhea Musc: Reports: extremity pain; Denies: neck pain or back pain Skin/Breast: Denies: rash Neuro: Denies: headache(s) Physical Exam Const: COMMON NORMALS: no acute distress, patient oriented x3 and healthy appearing HENMT: COMMON NORMALS: normocephalic and atraumatic HEAD & SCALP: normocephalic and atraumatic Neck/C-Spine: COMMON NORMALS: full ROM and supple Chest: COMMONS NORMALS: normal inspection of the chest Resp: COMMON NORMALS: normal respiratory effort Cardio: COMMON NORMALS: regular rate, regular rhythm and No murmurs present (Cardio) RATE: regular rate RHYTHM: regular rhythm Extremity: NARRATIVE EXTREMITY EXAM: Tenderness noted to left wrist and hand no obvious deformity she has full range of motion distal pulses intact Neuro: COMMON NORMALS: patient oriented x3, moves all extremities and no focal motor deficits Psych: COMMON NORMALS: mental status grossly normal, Normal thought process present and cooperative THOUGHT PROCESS: Normal thought process present Skin: COMMON NORMALS: no rashes or lesions noted and no wounds GENERAL SKIN EXAM: no rashes or lesions noted Course Vital Signs: Vital signs: Vital Signs Temperature 98.1 F 11/09/23 10:51 Pulse Rate 62 11/09/23 10:59 Respiratory Rate 18 11/09/23 10:59 Blood Pressure 165/101 11/09/23 10:59 Pulse Oximetry 100 11/09/23 10:59 Oxygen Delivery Me thod Room Air 11/09/23 10:59 MDM - Fall Medical Decision Making Patient presents here with a hand fracture from a fall did place an ulnar gutter splint she is follow-up with orthopedics she is return if worsening she understands agrees to plan. Medical Records I reviewed the patient's medical records. All radiology interpretation(s) finalized by discharge Discharge Plan Discharge Patient Disposition: Home Clinical Impression: Fracture of hand Condition: Stable Prescriptions: New hydrocodone-acetaminophen 5-325 mg tablet 1 tab PO Q6H PRN (Reason: pain) Qty: 14 0RF No Action fluticasone propionate [Flonase Allergy Relief] 50 mcg/actuation spray,suspension 2 spray intranasal DAILY Qty: 16 0RF Rx Instructions: administer into each nostril bupropion HCl 150 mg tablet sustained-release 12 hr 150 mg PO BID ibuprofen 200 mg Tablet 600 mg PO Q6H PRN (Reason: Pain) Discharge Orders: Discharge ED (Routine); Ordered 11/09/23 Ordered By: Clifford Montez Referrals: Galdino Chaney [Primary Care Provider] - Sidney Rosenberg DO [Physician] - 4-7 days Discharge Diet: Advance as tolerated Discharge Activity: Resume usual activity Patient Instructions: Hand Fracture (ED), Opioid Safety Coding Level of Care Code ED Layout Inspector for Mannie Jiménez
[2023-11-09 10:59] VITALS: BP 165/101; PULSE 62; RESP 18; O2SAT 100
[2023-11-09] MEDS: HYDROcodone-acetaminophen 5-325 mg Tablet 1 TAB PO (11:04)
--- NOTE | 2023-11-11 08:56 | DCPLANNER ---
A message was sent to ortho on 11/11/23 at 0856. [facility] to contact patient
== END 2023-11-09 12:07 | disposition home or self-care (01) ==
PROVIDERS: Emergency Provider Emergency Medicine; PCP Family Medicine
DX: S62.325A Displaced fracture of shaft of fourth metacarpal bone, left hand, initial encounter for closed fracture (principal); W10.8XXA Fall (on) (from) other stairs and steps, initial encounter
CPT/HCPCS: 73110; 73130; 99283

== ENCOUNTER → 2023-11-14 09:44 | Outpatient (BNVA) | payer MEDICARE, OTHER, SELFPAY | PROVIDERS: PCP Family Medicine; Referring Provider Emergency Medicine; Visit Provider Student in an Organized Health Care Education/Training Program | DX: S62.305A Unspecified fracture of fourth metacarpal bone, left hand, initial encounter for closed fracture; W10.9XXA Fall (on) (from) unspecified stairs and steps, initial encounter; Z46.89 Encounter for fitting and adjustment of other specified devices; S62.90XD Unspecified fracture of unspecified hand, subsequent encounter for fracture with routine healing; X58.XXXD Exposure to other specified factors, subsequent encounter | CPT/HCPCS: 73130; 97760; 99204; L3807 ==

== ENCOUNTER 2023-11-14 10:46 | Outpatient (CLI) | payer MEDICARE, OTHER, SELFPAY | END 2023-11-14 10:47 | disposition home or self-care (01) | LOC: SPT 10:47 | PROVIDERS: PCP Family Medicine; Visit Provider Student in an Organized Health Care Education/Training Program | DX: Z46.89 Encounter for fitting and adjustment of other specified devices (principal); S62.90XD Unspecified fracture of unspecified hand, subsequent encounter for fracture with routine healing; X58.XXXD Exposure to other specified factors, subsequent encounter | CPT/HCPCS: 97760; 99204; L3807 ==

== ENCOUNTER 2023-11-20 10:03 | Day surgery (SDC) | payer MEDICARE, OTHER, SELFPAY ==
[2023-11-20] VITALS (8 sets, daily range): BP systolic 112–167; BP diastolic 60–93; PULSE 53–69; RESP 16–17; TEMP 36.1–36.8; O2SAT 93–100; BMI 32.5
--- NOTE | 2023-11-20 | XR_ITS ---
WS: [id number] Exam: XR hand LT 2V 18040 Date/Time of Exam: 11/20/2023 12:00 AM Reason For Exam: OR PICS Intraoperative AP and lateral images of the LEFT hand are submitted. Images depict dorsal plate and s crew fixation involving a comminuted fracture of the fourth metacarpal. Fracture alignment appears to be satisfactory for healing.
--- NOTE | 2023-11-20 10:44 | ANES.PREANE2 ---
Pre-Anesthetic Assessment Height/Weight: Height 1.65 m Weight 88.904 kg Temp Pulse Resp BP Pulse Ox O2 Del Method 98.3 F 54 L 16 167/93 100 Room Air 11/20/23 10:32 11/20/23 10:32 11/20/23 10:32 11/20/23 10:32 11/20/23 10:32 11/20/23 10:32 Operation Date: 11/20/23 13:05 Proposed Procedures p ORIF Metacarpal/ left fourth metacarpal open reduction internal fixation 34513(Left) - Sidney Rosenberg, Familial anesthetic complications: Nausea Was Beta Micaela taken within 24 hours: N/A Was Clonidine taken within 24 hours: N/A Last intake: Intake Last Liquid Date 11/19/23 Last Liquid Time 19:00 Last Solid Date 11/19/23 Last Solid Time 19:00 Social No alcohol and No tobacco Exam alert, oriented x 3, clear to auscultation bilaterally and regular rate & rhythm Airway Mallampati: Class II Dentition: partials Anesthetic Plan ASA status: 1 Anesthesia: General Risk of > 500 ml blood loss (7ml/kg in children): No Medications/Allergies Home Medications Medication Instructions Recorded Confirmed Last Taken Type fluticasone propionate 50 2 spray intranasal DAILY #16 grams 10/27/22 11/19/23 11/16/23 Rx mcg/actuation nasal spray,suspension (Flonase Allergy Relief) bupropion HCl 150 mg tablet,12 hr 150 mg PO BID 11/09/23 11/19/23 11/16/23 History sustained-release hydrocodone 5 mg-acetaminophen 325 1 tab PO Q6H PRN pain #14 tabs 11/09/23 11/19/23 11/13/23 Rx mg tablet ibuprofen 200 mg tablet 600 mg PO Q6H PRN Pain 11/09/23 11/19/23 11/14/23 History TKO brace #1 ea 11/14/23 11/14/23 Unknown Rx Allergies Allergy/AdvReac Type Severity Reaction Status Date / Time No Known Allergies Allergy Verified 11/20/23 10:24 Data Anesthesia Cardiac Studies: No Data to Display
[2023-11-20] MEDS: ketorolac 30 mg/mL INJ IVP (11:00)
[2023-11-20] MEDS: acetaminophen 1,000 MG/100 ML PIGGYBACK 400 MG IV (11:01)
[2023-11-20] MEDS: scopolamine 1.5 Patch 1 PATCH TRANSDERMA (11:01)
[2023-11-20] MEDS: sodium chloride 0.9% 1,000 ML 30 ML IV (11:09)
--- NOTE | 2023-11-20 12:29 | W.PM.OPSUD ---
Surgery/Procedure H&P Update DATE OF PROCEDURE: November 20, 2023 DATE H&P PERFORMED: 11/14/23 H&P UPDATE INFORMATION: I have reviewed H&P completed within last 30 days, I have examined patient prior to procedure and No changes to prior documentation PREOP DIAGNOSIS: Left fourth metacarpal fracture PRIMARY INDICATION FOR PROCEDURE: Left fourth metacarpal fracture PLANNED PROCEDURE: Operation Date: 11/20/23 13:05 Proposed Procedures p ORIF Metacarpal/ left fourth metacarpal open reduction internal fixation 06000(Left) - Sidney Rosenberg DO
[2023-11-20] MEDS: ceFAZolin 2,000 MG in sodium chloride 0.9% (plus) 50 ML 100 MG IV (12:38)
[2023-11-20] MEDS: BUPivacaine 0.5% INJ 30 mL INJECTION (13:24)
[2023-11-20] MEDS: ROPivacaine 0.5% SDV 30 mL 150 MG INJECTION (13:24)
--- NOTE | 2023-11-20 14:22 | W.PM.BPON ---
Date of Procedure: 11/20/2023 Surgeon: Sidney Rosenberg DO Supervisor Compounding And Finishing(s): Pascual Rosenberg PA-C Procedure(s) performed: Left fourth metacarpal open reduction internal fixation Findings of the procedure(s): Patient was found to have a shortened spiral fracture of the metacarpal with malrotation she underwent procedure as planned with lag screw fixation and neutralization plate procedure went as planned with no issues or complications Estimated blood loss: 5 mL Specimen(s) removed: None Post-operative diagnosis: Left displaced fourth metacarpal fracture
--- NOTE | 2023-11-20 14:23 | P.OP_ITS ---
Operative Report Date of procedure: November 20, 2023 Pre-op diagnosis: Left fourth metacarpal shaft fracture Post-op diagnosis: Same with extension into the base Post-op findings: See operative report narrative Procedure done: Left fourth metacarpal open reduction internal fixation Implants: Parish narrow 8 hole 2.0 locking plate Combination of locking and nonlocking screws 2.0 mm Surgeon: Sidney Rosenberg DO Operations Plant Attendant: Pascual Rosenberg PA-C: ALBERT was necessary for assistance in this case with hand positioning to execute the procedure, retraction and protection of neurovascular structures as well as to assist with wound closure and dressing application. Anesthesia: General Estimated blood loss: 5mL 60 minutes IV fluids: 800 mL Complications: none Findings: See operative report narrative Condition: stable Disposition: same day Brief History: Patient was seen evaluate in the preoperative holding area. 68-year-old female sustained left fourth metacarpal fracture. She had noticeable shortening and malrotation clinically we talked about her treatment options she is very active her hands and through shared decision makes elects proceed with surgical intervention of the left fourth metacarpal open reduction internal fixation she understands and Zetts procedure risk benefits complication alternatives with surgery through shared decision make elects proceed with surgical intervention all questions answered at this time. Procedure: Patient seen eval in the preoperative holding area. Consent was reviewed and signed with patient. Correct extremity/digit was then subsequently marked. Patient was then seen evaluated by anesthesia and was cleared for surgery was taken back to the operative suite. Patient was kept on the [facility] bed and armboard applied to left upper extremity. Patient then subsequently underwent anesthesia per the anesthesia department she was appropriate secured to the bed all bony prominences well-padded. Once properly anesthetized a nonsterile tourniquet was applied to the left upper arm. The left upper arm was then prepped and draped in orthopedic fashion. Final timeout performed. Patient received appropriate preoperative antibiotics. I then utilized Esmarch tourniquet and exsanguinate the left upper extremity to 250 mmHg and tourniquet was insufflated. I then subsequently made a longitudinal incision directly over the left fourth metacarpal extending just proximal to the metacarpal head to the metacarpal base. Longitudinal incision was made strictly through skin switch to Littler dissection scissors protecting the cutaneous nerve branches and subsequently identified the extensor tendons to the ring and small fingers appropriately identified as well as to the middle finger went in between this interval and identified the fourth metacarpal and its fracture. Patient had significant shortening and rotation. I subsequently elevated periosteally using sharp scalpel excision for full-thickness flaps to create a tissue closure over the plate after fixed. I then subsequently utilized a dental pick as well as a wood handle elevator to elevate the periosteum as well as to open up the fracture site debride out all fracture hematoma and scar tissue with rongeur as well as curettage and then thoroughly irrigation performed I then had satisfactory bone edges and was able to get a excellent cortical read I subsequently utilizing traction as well as a [id number] reduction clamp performed an anatomic reduction and utilized a clamp to hold the reduction fixation. This was a spiral fracture pattern is amenable to lag screw fixation and then subsequently under lag technique drilled 2 lag screws in appropriate standard lag screw by technique fashion he was subsequently drilled measured appropriate screw was placed with excellent fixation but was able to take off the point reduction clamp with reduction maintained there was a nondisplaced fracture line that did spiral down into the base of the metacarpal this did not appear to be associated with the fourth CMC joint. However at this point in time felt appropriate to have a long plate capturing the screws into the base for added fixation and then subsequently selected a [employer] 2.0 mm narrow locking plate 8 hole. This was measured and then appropriate length with fluoroscopic imaging. Once satisfied with the placement utilizing K wire for fixation to make small minor adjustments to was satisfied with my plate placement I then subsequently drilled and placed 2 bicortical screws 1 proximally 1 distally securing plate to bone. I then subsequently verified plate placement as well as contoured bone as well as bone plate interface and once I was satisfied with this the K wires were then removed and then I subsequently drilled and placed final screws both proximally and distally around the lag screw as a neutralization plate. These had excellent cortical fixation satisfied with these results. I then subsequently took final fluoroscopic imaging x-rays are satisfactory of reduction internal fixation fourth metacarpal shaft fracture. Tourniquet was deflated hemostasis satisfactory thorough irrigation performed and then subsequently closed and in layered fashion with 2-0 Vicryl suture closing the periosteum over the plate to avoid from tendon adhesions. And then subsequently closed subcutaneous tissue with 3-0 Vicryl and skin with a running horizontal mattress stitch nylon. Patient was then placed in a volar splint incision was covered with Xeroform followed by Curlex Webril and a volar splint. Patient was then awakened from anesthesia and taken back in stable condition. Disposition: Patient taken to PACU in stable condition recovering well will be in a volar splint this is a follow-up nonweightbearing to the left hand. Follow-up in the orthopedic office in 2 weeks for see appropriate discharge structure as well as pain medication. Patient family understand agree with current plan. Questions answered.
--- NOTE | 2023-11-20 14:39 | P.PCN_ITS ---
PACU note Narrative: Pt Is a 68-year-old female just underwent a left fourth metacarpal ORIF. Patient transferred to PACU in stable condition. Pain is well controlled. Dressing on hand is dry and in place. Patient's fingers are warm and well- perfused. Patient can wiggle fingers. normal cap refill under 2 seconds. Patient has normal elbow range of motion. sensation to hand intact. Exam: awake Disposition: discharged
[2023-11-20] MEDS: fentaNYL 50 mcg/mL INJ 2mL IVP ×2 (15:03→15:13)
[2023-11-20] MEDS: ondansetron 2 mg/ML SDV 2 mL 4 MG IVP (15:09)
[2023-11-20] MEDS: HYDROmorphone 1 mg/mL INJ 1 mL 0.5 MG IVP (15:34)
--- NOTE | 2023-11-20 16:04 | SUR.PHASEII ---
Timeout was completed at bedside and Dr Isaacs performed a nerve block to patient's left arm for her wrist.
--- NOTE | 2023-11-20 16:07 | ANES.PROC ---
Anesthesia Procedures Procedure/Date: 11/20/23 Nerve Block ^: Nerve Block 1: Main Anesthesia: general anesthesia Time Out Performed: Yes Consent: requested by attending/covering physician, from patient, from other, risks and benefits reviewed and patient agrees to proceed Nerve block location: axillary (L) Anesthesia monitors applied: pulse oximetry, EKG, BP cuff and oxygen Nerve block position: supine Anesthetic Used: ropivicaine 0.5% (30m l) and with decadron (4 mg) Ultrasound used to: recognize landmarks and visualize and ID brachial plexus Nerve Stimulator Used?: No Interscalene/Femoral BLK: 2 stimuplex 22 g needle used for position and inplane approach, visualize local anesthetic spread and no vascular puncture identified Patient Tolerated Procedure: well Complications: none
--- NOTE | 2023-11-20 16:55 | ANE.PACU2 ---
Inpatient post-anesthesia follow up: Airway intact: Yes Vital signs: Temperature 97.2 F Pulse Rate 58 Respiratory Rate 17 Blood Pressure 161/72 Pulse Oximetry 100 Oxygen Delivery Me thod Room Air Oxygen Flow Rate Fraction of Inspir ed Oxygen Hydration adequate: Yes Nausea and vomiting: No Pain level: 1 Mental status: Baseline
== END 2023-11-20 16:55 | disposition home or self-care (01) ==
PROVIDERS: PCP Family Medicine; Visit Provider Student in an Organized Health Care Education/Training Program
PROC: (CPT 26615; principal; 2023-11-20 13:05)
DX: S62.325A Displaced fracture of shaft of fourth metacarpal bone, left hand, initial encounter for closed fracture (principal); W19.XXXA Unspecified fall, initial encounter
CPT/HCPCS: 26615; 73120; 76000; C1713; J0131; J0360; J0690; J1100; J1170; J1885; J2405; J2704; J2795; J3010; J3490; J7030

== ENCOUNTER → 2023-12-03 12:52 | Outpatient (BNVA) | payer MEDICARE, OTHER, SELFPAY | PROVIDERS: PCP Family Medicine; Visit Provider Student in an Organized Health Care Education/Training Program | DX: S62.305D Unspecified fracture of fourth metacarpal bone, left hand, subsequent encounter for fracture with routine healing; X58.XXXD Exposure to other specified factors, subsequent encounter | CPT/HCPCS: 73120; 99024 ==

== ENCOUNTER 2023-12-05 09:36 | Outpatient (RCR) | payer MEDICARE, OTHER, SELFPAY | END 2023-12-24 23:59 | disposition home or self-care (01) | LOC: SOT 09:36 | PROVIDERS: PCP Family Medicine; Visit Provider Student in an Organized Health Care Education/Training Program | DX: S62.605D Fracture of unspecified phalanx of left ring finger, subsequent encounter for fracture with routine healing (principal); X58.XXXD Exposure to other specified factors, subsequent encounter | CPT/HCPCS: 97022; 97110; 97140; 97166; 97530; L3906 ==

== ENCOUNTER 2023-12-25 06:00 | Outpatient (RCR) | payer MEDICARE, OTHER, SELFPAY | END 2024-01-24 23:59 | disposition home or self-care (01) | LOC: SOT 06:00 | PROVIDERS: PCP Family Medicine; Visit Provider Student in an Organized Health Care Education/Training Program | DX: Z47.89 Encounter for other orthopedic aftercare (principal) | CPT/HCPCS: 97022; 97110; 97140 ==

== ENCOUNTER → 2023-12-31 09:37 | Outpatient (BNVA) | payer MEDICARE, OTHER, SELFPAY | PROVIDERS: PCP Family Medicine; Visit Provider Student in an Organized Health Care Education/Training Program | DX: S62.308A Unspecified fracture of other metacarpal bone, initial encounter for closed fracture (principal); X58.XXXA Exposure to other specified factors, initial encounter | CPT/HCPCS: 73130; 99213 ==

== ENCOUNTER → 2024-02-25 10:45 | Outpatient (BNVA) | payer MEDICARE, OTHER, SELFPAY | PROVIDERS: PCP Family Medicine; Visit Provider Student in an Organized Health Care Education/Training Program | DX: Z98.890 Other specified postprocedural states | CPT/HCPCS: 73130; 99213 ==